=== PATIENT | female | born 1990 | race Caucasian/White ===

== ENCOUNTER 2023-12-28 15:46 | Emergency (ER) | payer BC ==
[~2023-12-28] VITALS: Ht 170.2 cm; Wt 123.0 kg
[2023-12-28 15:49] VITALS: O2SAT 94
[2023-12-28 17:08] LABS: BASOPHILS % 0.2 % (0.0-2.0); DIFFERENTIAL COMMENT 0; EOSINOPHILS % 0.7 % (0.0-5.0); HEMATOCRIT. 35.8 % (36.0-48.0); HEMOGLOBIN. 10.2 g/dL (12.0-16.0); LYMPHOCYTES % 12.7 % (20.0-50.0); MEAN CORPUSCULAR HEMOGLOBIN 23.3 pg (28.0-32.0); MEAN CORPUSCULAR HGB CONC 28.4 g/dL (31.0-37.0); MEAN CORPUSCULAR VOLUME 82.1 fL (81.0-99.0); MEAN PLATELET VOLUME 7.2 fl (7.4-10.4); NEUTROPHILS % 81.4 % (40.0-76.0); PLATELET 234 x1000/uL (130-400); RED BLOOD CELL COUNT 4.36 mill/uL (4.2-5.4); RED CELL DISTRIBUTION WIDTH 18.2 % (11.6-14.6); WHITE BLOOD COUNT 5.8 x1000/uL (4.5-11.0)
[2023-12-28 17:14] LABS: CHLORIDE 112 mEq/L (98-107); SODIUM 142 mEq/L (136-145)
[2023-12-28 17:15] LABS: CALCIUM 8.6 mg/dL (8.7-10.4); CARBON DIOXIDE 20 mEq/L (21-32)
[2023-12-28 17:20] LABS: CREATININE 0.7 mg/dL (0.6-1.0); ETHANOL BLOOD 115 mg/dL (<10); GLUCOSE 92 mg/dL (70-105); UREA NITROGEN BLOOD 7 mg/dL (9-23)
[2023-12-28 20:44] VITALS: BP 128/90; PULSE 92; RESP 25; TEMP 36.50292; O2SAT 98
== END 2023-12-28 21:00 | disposition home or self-care (01) ==
LOC: ER 15:46
DX: F10.129 Alcohol abuse with intoxication, unspecified (principal); F12.10 Cannabis abuse, uncomplicated; R41.82 Altered mental status, unspecified; Y90.5 Blood alcohol level of 100-119 mg/100 ml
CPT/HCPCS: 80048; 80320; 85025; 36415; 70450; 99285; Z7610; G0480